=== PATIENT | male | born 1945 | race Caucasian/White ===

== ENCOUNTER 2019-10-31 06:20 | Observation (INO) | payer OTHER, SELFPAY ==
[2019-10-31] VITALS (7 sets, daily range): BP systolic 100–168; BP diastolic 54–86; PULSE 59–80; RESP 14–20; TEMP 36–36.5; O2SAT 96–98
--- NOTE | ~2019-10-31 | XR_ITS ---
XR chest 1V portable DATE: 10/31/2019 06:53 INDICATION: Left and midline chest pain TECHNIQUE: Portable AP chest on 10/31/2019 at 0655 hours COMPARISON: 07/26/2011 PA and lateral chest FINDINGS: There is mild infiltrate and/atelectasis involving primarily the lower lung zones. No pleural effusion is evident. There is pulmonary vascular redistribution which may indicate mild pu lmonary venous hypertension but heart size is normal. No pneumothorax. Aortic tortuosity. Diffuse osteopenia. Bilateral rotator cuff atrophy. 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 Dextroscoliosis and degene rative change of the thoracic spine. IMPRESSION: Mild infiltrate and/atelectasis in the lower lung zones Pulmonary vascular redistribution suggests mild pulmonary venous hypertension Reviewed, dictated and finalized at location A.
--- NOTE | 2019-10-31 06:28 | ECG_ITS ---
Measurements Intervals [place] Rate: 77 P: -28 SD: 181 QRS: -33 QRSD: 106 T: 23 QT: 366 QTc: 414 Interpretive Statements SINUS RHYTHM LEFT AXIS DEVIATION EARLY PRECORDIAL R/S TRANSITION BORDERLINE ECG Electronically Signed On 10-31-2019 7:57:17 CDT by Brant Ferrara D.O.
--- NOTE | 2019-10-31 06:30 | ED.CHESTPAIN ---
HPI - Chest Pain General Chief Complaint: Chest Pain <Shireen Blancas MD - Last Filed: 10/31/19 19:20> Stated Complaint: cp <Shireen Blancas MD - Last Filed: 10/31/19 19:20> Time Seen by Provider: 10/31/19 06:23 <Shireen Blancas MD - Last Filed: 10/31/19 19:20> History of Present Illness HPI narrative: Patient presents with his for chest pain since 2 AM. He has a history of A. fib and is on Xarelto. Chest pain is mid to left chest. He also has shortness of breath and diaphoresis and nausea. He has hypertension and does not have diabetes. He gauges the chest pain at 7 out of 10. <Shireen Blancas MD - Last Filed: 10/31/19 19:20> MD complaint: chest pain <Shireen Blancas MD - Last Filed: 10/31/19 19:20> Pertinent past history: other (History of A. fib) <Shireen Blancas MD - Last Filed: 10/31/19 19:20> Onset (ago): hour(s) <Shireen Blancas MD - Last Filed: 10/31/19 19:20> Timing of current episode: constant <Shireen Blancas MD - Last Filed: 10/31/19 19:20> Prior episodes: No <Shireen Blancas MD - Last Filed: 10/31/19 19:20> Onset: during rest and awoke with symptoms <Shireen Blancas MD - Last Filed: 10/31/19 19:20> Pain location: left chest <Shireen Blancas MD - Last Filed: 10/31/19 19:20> Pain radiation: none <Shireen Blancas MD - Last Filed: 10/31/19 19:20> Severity: moderate <Shireen Blancas MD - Last Filed: 10/31/19 19:20> Related Data Home Medications: Home Medications Medication Instructions Recorded Confirmed Adult One Daily Multivitamin 1 tablet PO DAILY 10/31/19 10/31/19 Xarelto 20 mg PO DAILY 10/31/19 10/31/19 coQ10 (ubiquinol) 100 mg PO DAILY 10/31/19 10/31/19 losartan-hydrochlorothiazide 1 tablet PO DAILY 10/31/19 10/31/19 metoprolol succinate 50 mg PO DAILY 10/31/19 10/31/19 omeprazole 20 mg PO DAILY PRN 10/31/19 10/31/19 simvastatin 20 mg PO DAILY 10/31/19 10/31/19 tamsulosin 0.4 mg PO DAILY 10/31/19 10/31/19 <Shireen Blancas MD - Last Filed: 10/31/19 19:20> Allergies/Adverse Reactions: Allergies Allergy/AdvReac Type Severity Reaction Status Date / Time amoxicillin Allergy Unknown Nausea and Verified 10/31/19 09:05 Vomiting Penicillins Allergy Unknown Nausea and Verified 10/31/19 09:05 Vomiting <Shireen Blancas MD - Last Filed: 10/31/19 19:20> Review of Systems Review of Systems: Narrative: CONSTITUTIONAL: Denies fever, chills. EYES: Denies visual changes, redness, or discharge. ENT: Denies rhinorrhea, congestion, sore throat, or otalgia. CARDIOVASCULAR: Denies palpitations, or edema. RESPIRATORY: Denies cough or dyspnea. GASTROINTESTINAL: Denies abdominal pain, vomiting, or diarrhea. GENITOURINARY: Denies dysuria or hematuria. SKIN: Denies rash or itching. MUSCULOSKELETAL: Denies back pain, joint pain, or myalgia. NEUROLOGIC: Denies headache, numbness, or weakness. PSYCHIATRIC: Denies anxiety or depression. <Shireen Blancas MD - Last Filed: 10/31/19 19:20> [facility] Past Medical History Medical History: Medical History (Updated 10/31/19 @ 12:12 by Gregg Chacon MD) Cholelithiasis History of atrial fibrillation HTN (hypertension) Hyperlipidemia Pulmonary emboli <Shireen Blancas MD - Last Filed: 10/31/19 19:20> Surgical History Surgical History: Surgical History (Updated 10/31/19 @ 11:59 by Gregg Chacon MD) History of inguinal hernia repair S/P ablation of atrial fibrillation <Shireen Blancas MD - Last Filed: 10/31/19 19:20> Family History Family History: Family History (Updated 10/31/19 @ 12:00 by Gregg Chacon MD) Father , 70s Heart disease Mother , 92 No problems noted. Other Family history of coronary artery disease <Shireen Blancas MD - Last Filed: 10/31/19 19:20> Social History Social History: Social History (Updated 10/31/19 @ 06:34 by Shireen Blancas MD) Smoking status: Former smoker Alcohol intake:
[2019-10-31] MEDS: MORPHINE SULFATE 2 MG/ML INJ IV PUSH (06:38)
[2019-10-31] MEDS: NITROGLYCERIN SL 0.4 MG TABLET SUBLINGUAL (06:38)
--- NOTE | 2019-10-31 06:39 | PC.NURSE ---
administered 0.4 mg nitro SL pt cp 7 HR 77 BP 169/86 [id number] pt refusing more nitro. cp at a three
[2019-10-31 06:59] LABS: Add Urine Microscopic? YES; Appearance Urine Clear (Clear); Bilirubin Urine Negative (Negative); Blood Urine Negative (Negative); Color Urine Yellow (Yellow); Glucose Urine UA Negative (Negative); Ketones Urine Negative (Negative); Leukocyte Esterase Ur Negative LEU/UL (Negative); Mucus Urine Rare /lpf; Nitrate Urine Negative (Negative); Protein Urine Negative (Negative); RBC Urine 0-2 /hpf (0-2); Specific Grav Ur 1.023 (1.001-1.035); WBC Urine 0-3 /hpf
[2019-10-31] MEDS: ASPIRIN 81 MG CHEWABLE TABLET 324 MG PO (06:59)
[2019-10-31 07:05] LABS: INR 1.9; Prothrombin Time 20.9 Seconds (11.1-14.7)
[2019-10-31 07:06] LABS: Alanine Aminotransferase 34 U/L (4-50); Albumin Level 4.4 g/dL (3.5-5.1); Alkaline Phosphatase 82 U/L (38-126); Aspartate Amino Transferase 46 U/L (17-59); Bilirubin,Total 0.5 mg/dL (0.2-1.3); Blood Urea Nitrogen 27 mg/dL (9-20); Calcium 9.1 mg/dL (8.4-10.2); Carbon Dioxide 26 mmol/L (22-30); Chloride 102 mmol/L (98-107); Estimated Glomerular Filt Rate > 60; Glucose 156 mg/dL (75-110); Lipase 148 U/L (23-300); Partial Thromboplastin Time 39.4 SECONDS (22.3-36.8); Potassium 3.9 mmol/L (3.4-5.0); Sodium 135 mmol/L (137-145)
--- NOTE | 2019-10-31 07:16 | PC.NURSE ---
Assumed care of pt, pt is alert and upright on stretcher. at bedside. VSS. Discussed POC.
[2019-10-31 07:19] LABS: NT Pro B Type Natriuretic Pept 116 PG/ML (5-100); Troponin I < 0.012 ng/mL (0.000-0.034)
--- NOTE | 2019-10-31 09:00 | ADMGEN ---
This patient, Steven Morgan, was admitted to IMU Room 200-01. Patient/family oriented to hospital policies and general routines including ID bracelet, bed and alarms, visiting hours, pain management, procedures, bathroom and other care routines, personal items, smoking policy, room service/diet, and visiting hours. Valuables list has been completed. Information on how to activate the Rapid Response Team has been discussed. Patient/Family are encouraged to report perceived risks to care and to ask questions if they do not understand what they are told or what they should do.
[2019-10-31 10:22] LABS: Troponin I < 0.012 ng/mL (0.000-0.034)
--- NOTE | 2019-10-31 11:57 | PM.IMHP ---
H&P: HPI History of Present Illness Chief complaint: etta pain Narrative: Date of visit 10/30 1114. Steven Morgan is a 74 year old male with history of hypertension, atrial fibrillation status post ablation, hyperlipidemia, known gallstones, and history of pulmonary emboli on chronic anticoagulation who presented to the emergency room early this a.m. with complaints of abdominal and chest pain. Patient relates that he had worked out and heat whole day on the maintaining hydration regularly. Came home rested and had a Gin and tonic about 8:00 p.m. and about 9:00 p.m. ate lunch meat and cheese sandwiches followed by nuts. After retiring he awoke at approximately 2:00 a.m. with pressure across his abdomen bloating that persisted with nausea and eventually radiated up toward toward his chest and and shoulder blades. He felt slightly diaphoretic also. No shortness of breath. He got up showered and had his bring him to the hospital. Here he received IV morphine sublingual nitroglycerin had a bowel movement and his pain all subsided. He does relate that approximately your ago he was seen at [facility] ER with abdominal complaints and found to have gallstones and encouraged to have a cholecystectomy but has not had any further problems. With his risk factors it was thought he should be admitted for serial troponins to rule out cardiac etiology. Review of Systems Review of Systems: Narrative: Constitutional weight fairly stable other than some weight loss with activity at his usually does in the summer. No fever no chills Eyes no double vision scotoma Mouth of pharyngitis or laryngitis Pulmonary no shortness breath wheezing or cough CV per present illness no palpitation no pedal edema GI as per present illness no melena hematochezia no dysuria hematuria Muscle skeletal no particular joint discomfort Integument no skin breakdown rashes Neuropsych no seizures no syncope PMFSH Past Medical History Medical History (Updated 10/31/19 @ 12:12 by Gregg Chacon MD) Cholelithiasis History of atrial fibrillation HTN (hypertension) Hyperlipidemia Pulmonary emboli Surgical History Surgical History (Updated 10/31/19 @ 11:59 by Gregg Chacon MD) History of inguinal hernia repair S/P ablation of atrial fibrillation Family History Family History (Updated 10/31/19 @ 12:00 by Gregg Chacon MD) Father , 70s Heart disease Mother , 92 No problems noted. Other Family history of coronary artery disease Social History Social History (Updated 10/31/19 @ 06:34 by Shireen Blancas MD) Smoking status: Former smoker Alcohol intake: current Drinks per week: 3 Substance use: never Gender identity (if verbalized by the patient): Male Spiritual care concerns: Yes (Sabianism) Meds Home Medications and Allergies Home Medications Medication Instructions Recorded Confirmed Type Adult One Daily Multivitamin 1 tablet PO DAILY 10/31/19 10/31/19 History coQ10 (ubiquinol) 100 mg PO DAILY 10/31/19 10/31/19 History losartan-hydrochlorothiazide 1 tablet PO DAILY 10/31/19 10/31/19 History metoprolol succinate 50 mg PO DAILY 10/31/19 10/31/19 History omeprazole 20 mg PO DAILY PRN 10/31/19 10/31/19 History rivaroxaban [Xarelto] 20 mg PO DAILY 10/31/19 10/31/19 History simvastatin 20 mg PO DAILY 10/31/19 10/31/19 History tamsulosin 0.4 mg PO DAILY 10/31/19 10/31/19 History Allergies Allergy/AdvReac Type Severity Reaction Status Date / Time amoxicillin Allergy Unknown Nausea and Verified 10/31/19 09:05 Vomiting Penicillins Allergy Unknown Nausea and Verified 10/31/19 09:05 Vomiting Vital Signs Vital Signs - 24 hr 10/31/19 06:26 10/31/19 06:32 10/31/19 07:15 Temperature 36.5 C Pulse Rate 67 74 75 Respiratory Rate 20 17 Blood Pressure 168/86 H 123/60 Pulse Oximetry 98 96 10/31/19 08:23 10/31/19 08:43 10/31/19 09:16 Temperature 36.0 C L Pulse Rate 59 L 60 62 R
== END 2019-10-31 12:38 | disposition home or self-care (01) ==
LOC: ANHED 07:39 → ANHIMU 08:28
PROVIDERS: Emergency Medicine; Admitting Provider Internal Medicine; Emergency Provider Emergency Medicine; Visit Provider Internal Medicine
DX: R07.9 Chest pain, unspecified (principal); R06.02 Shortness of breath; I48.91 Unspecified atrial fibrillation; I10 Essential (primary) hypertension; E78.5 Hyperlipidemia, unspecified; Z86.711 Personal history of pulmonary embolism; Z79.01 Long term (current) use of anticoagulants; Z87.891 Personal history of nicotine dependence
CPT/HCPCS: 36415; 71045; 80053; 81001; 83690; 83880; 84484; 85610; 85730; 93005; 96374; 99285; A9270; G0378; J2270